=== PATIENT | female | born 1995 | race Caucasian/White ===

== ENCOUNTER 2020-09-18 14:39 | Outpatient (REF) | payer OTHER, SELFPAY ==
[2020-09-18 16:20] LABS: T4 Thyroxine 10.6 ug/dL (4.5-12.0)
[2020-09-19 08:56] LABS: T3 Uptake 20 % (22-35)
== END 2020-09-18 14:40 | disposition home or self-care (01) ==
LOC: HO.LAB 14:39
PROVIDERS: PCP Internal Medicine; Visit Provider Psychiatry & Neurology Neurology
DX: R00.2 Palpitations (principal)
CPT/HCPCS: 36415; 84436; 84479